=== PATIENT | male | born 1970 | race Two or more races ===

== ENCOUNTER 2016-06-17 08:41 | Observation (INO) | payer OTHER ==
[2016-06-17] VITALS (7 sets, daily range): BP systolic 132–160; BP diastolic 73–96; PULSE 94–111; RESP 12–20; TEMP 97.5–98.8; O2SAT 95–99
[~2016-06-17] VITALS: Ht 157.5 cm; Wt 72.0 kg
[2016-06-17] MEDS ORDERED: SODIUM CHLOR 0.9% 1000 ML INJ 1,000 ML IV SCH ×2 (08:57→14:48)
[2016-06-17] MEDS ORDERED: SODIUM CHLORIDE 0.9% FLUSH 10 ML FLUSH IVF PRN (09:00)
[2016-06-17] MEDS ORDERED: DIPHTH/TETANUS/ACEL PERTUSSIS (BOOSTER) 0.5 ML VIAL/PFS IM ONE (09:00)
[2016-06-17 09:26] LABS: AUTOMATED NEUTROPHIL # 8.3 TH/MM3 (1.8-7.7); BASOPHIL % 0.1 % (0.0-2.0); EOSINOPHIL % 0.4 % (0.0-4.0); HEMATOCRIT 44.9 % (39.0-51.0); HEMO FLAGS DIFF FINAL; LYMPH % 16.7 % (9.0-44.0); LYMPHOCYTE # 1.7 TH/MM3 (1.0-4.8); MEAN CELL VOLUME 87.7 FL (80.0-100.0); MEAN CORPUSCULAR HEMOGLOBIN 29.2 PG (27.0-34.0); MEAN CORPUSCULAR HGB CONC 33.3 % (32.0-36.0); MONO % 3.7 % (0.0-8.0); NEUT % 79.1 % (16.0-70.0); PLATELET COUNT 211 TH/MM3 (150-450); RED BLOOD COUNT 5.12 MIL/MM3 (4.50-5.90); RED CELL DISTRIBUTION WIDTH 13.5 % (11.6-17.2); WHITE BLOOD COUNT 10.5 TH/MM3 (4.0-11.0)
[2016-06-17 09:32] LABS: APTT (PATIENT) 21.2 SEC (24.3-30.1); PROTHROMBIN TIME - PATIENT 11.3 SEC (9.8-11.6)
[2016-06-17 09:37] LABS: POTASSIUM 3.7 MEQ/L (3.5-5.1)
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
[2016-06-17] MEDS ORDERED: IOHEXOL 350 MG/ML 10 ML VIAL (for RAD DIAG) IV ONE (10:10)
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
[2016-06-17] MEDS ORDERED: SENNOSIDES 8.6 MG TAB PO PRN (15:00)
[2016-06-17] MEDS ORDERED: MORPHINE SULFATE 4 MG/ML INJ IV PRN (15:00)
[2016-06-17] MEDS ORDERED: SODIUM CHLORIDE 0.9% FLUSH 10 ML FLUSH IV FLUSH PRN (15:00)
[2016-06-17] MEDS ORDERED: ACETAMINOPHEN 325 MG TAB PO PRN ×2 (15:00)
[2016-06-17] MEDS ORDERED: NALOXONE HCL 0.4 MG/ML AMP IV PRN (15:00)
[2016-06-17] MEDS ORDERED: ONDANSETRON HCL 4 MG/2 ML VIAL IVP PRN (15:00)
[2016-06-17] MEDS ORDERED: MORPHINE SULFATE 4 MG/ML INJ IV PUSH ONE (15:00)
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
[2016-06-17] MEDS ORDERED: HYDROmorphone HCL PF 1 MG/ML VIAL IV PUSH PRN (15:45)
[2016-06-17] MEDS ORDERED: ENOXAPARIN SODIUM 40 MG/0.4 ML SYRINGE SQ SCH (16:00)
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
[2016-06-17] MEDS: INSULIN ASPART SUPPLEMENTAL SCALE SQ SCH ×2 (17:01→21:30)
[2016-06-17 17:09] LABS: HEMOGLOBIN A1a 1.3 %; HEMOGLOBIN A1b 2.3 %; HEMOGLOBIN Ao 78.8 %; HEMOGLOBIN LA1C 3.5 %; HEMOGLOBIN P3 4.7 %
[2016-06-17] MEDS: DOCUSATE SODIUM 100 MG CAP PO SCH (18:00)
[2016-06-17] MEDS ORDERED: diphenhydrAMINE HCL 50 MG/ML VIAL IV PUSH ONE (18:00)
[2016-06-17] MEDS ORDERED: methylPREDNISolone SOD SUCC 125 MG/2 ML VIAL IV PUSH ONE (18:00)
[2016-06-17] MEDS: SODIUM CHLORIDE 0.9% FLUSH 10 ML FLUSH IV FLUSH SCH (21:00)
[2016-06-18] MEDS: DOCUSATE SODIUM 100 MG CAP PO SCH ×2 (04:00→15:22)
[2016-06-18 04:18] VITALS: BP 144/88; PULSE 88; RESP 20; TEMP 98.3; O2SAT 97
[2016-06-18] MEDS: INSULIN ASPART SUPPLEMENTAL SCALE SQ SCH ×3 (06:36→16:00)
[2016-06-18] MEDS ORDERED: diphenhydrAMINE HCL 50 MG/ML VIAL IV PUSH ONE (07:00)
[2016-06-18 08:00] VITALS: BP 129/78; PULSE 80; RESP 20; TEMP 98; O2SAT 96
[2016-06-18 08:18] LABS: AUTOMATED NEUTROPHIL # 8.9 TH/MM3 (1.8-7.7); BASOPHIL % 0.1 % (0.0-2.0); EOSINOPHIL % 0.1 % (0.0-4.0); HEMATOCRIT 44.1 % (39.0-51.0); HEMO FLAGS DIFF FINAL; LYMPH % 9.7 % (9.0-44.0); MEAN CELL VOLUME 88.2 FL (80.0-100.0); MEAN CORPUSCULAR HEMOGLOBIN 29.6 PG (27.0-34.0); MEAN CORPUSCULAR HGB CONC 33.6 % (32.0-36.0); MONO % 2.8 % (0.0-8.0); NEUT % 87.3 % (16.0-70.0); PLATELET COUNT 257 TH/MM3 (150-450); RED BLOOD COUNT 4.99 MIL/MM3 (4.50-5.90); RED CELL DISTRIBUTION WIDTH 13.7 % (11.6-17.2); WHITE BLOOD COUNT 10.2 TH/MM3 (4.0-11.0)
--- NOTE | 2016-06-18 08:47 | PD.POD ---
Subjective Podiatric Problems Pt seen bedside this morning, [place]ian speaking, no acute distress Past Med/Surg/Social History Social History Smoking Status: Never Smoker Objective Vital Signs Vital Signs Date Time Temp Pulse Resp B/P Pulse Ox O2 Delivery O2 Flow Rate FiO2 06/18/16 04:18 98.3 88 20 144/88 97 06/17/16 23:51 98.4 102 20 132/73 95 06/17/16 19:45 98.8 94 20 145/79 95 06/17/16 17:17 97.8 111 18 136/85 96 06/17/16 15:46 107 12 144/84 99 Room Air 06/17/16 14:03 108 17 152/86 98 Room Air 06/17/16 12:00 106 12 140/85 99 Room Air 06/17/16 08:48 97.5 100 16 160/96 98 Coded Allergies: No Known Allergies (Unverified , 06/17/16) Exam-Podiatry Remarks Right foot edema improved, still moderate edema Pulses and sensation intact CAn wiggle toes No fracture blisters Assessment & Plan Diagnosis: (1) Metatarsal bone fracture Status: Acute A/P Pt with no sign of compartment syndrome Pt with closed met base fractures, nonoperative at this point Plan is posterior splint with mild compressive dressing nonweight bearing with crutches Diabetes management per primary F/U with Dr Vega 2-3 weeks Problem Qualifiers (1) Metatarsal bone fracture: Qualified Code: S92.301A - Closed displaced fracture of metatarsal bone of right foot, unspecified metatarsal, initial encounter Yazan Vega DPM Jun 18, 2016 08:47
[2016-06-18 08:58] LABS: ALKALINE PHOSPHATASE 79 U/L (45-117); ALT (GPT) 58 U/L (12-78); ANION GAP 10 MEQ/L (5-15); AST (GOT) 21 U/L (15-37); BICARBONATE 25.2 MEQ/L (21.0-32.0); BLOOD UREA NITROGEN 12 MG/DL (7-18); CHLORIDE 102 MEQ/L (98-107); GLOMERULAR FILTRATION RATE 118 ML/MIN (>89); POTASSIUM 3.6 MEQ/L (3.5-5.1); SODIUM (NA) 137 MEQ/L (136-145); TOTAL BILIRUBIN ADULT 1.9 MG/DL (0.2-1.0)
[2016-06-18] MEDS ORDERED: ENOXAPARIN SODIUM 40 MG/0.4 ML SYRINGE SQ SCH (09:00)
[2016-06-18] MEDS: SODIUM CHLORIDE 0.9% FLUSH 10 ML FLUSH IV FLUSH SCH (09:22)
[2016-06-18 12:10] VITALS: BP 130/77; PULSE 83; RESP 20; TEMP 98.1; O2SAT 95
[2016-06-18] MEDS ORDERED: diphenhydrAMINE HCL 50 MG CAP PO ONE (15:00)
[2016-06-18] MEDS ORDERED: GLIP5TAB8 PO (15:53)
[2016-06-18] MEDS ORDERED: NORC5TAB PO (15:53)
[2016-06-18] MEDS ORDERED: CRUTMIS25 (15:57)
[2016-06-18] MEDS ORDERED: BLOOD GLUCOSE M1 KIT (15:57)
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
[2016-06-18 16:00] VITALS: BP 142/79; PULSE 80; RESP 20; TEMP 98.1; O2SAT 96
[2016-06-18] MEDS ORDERED: FAMOTIDINE 20 MG TAB PO ONE (16:00)
[2016-06-18] MEDS ORDERED: predniSONE 50 MG TAB PO ONE (16:00)
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
== END 2016-06-18 18:34 | disposition home or self-care (01) ==
LOC: NEPC 08:41 → NEDA 13:58 → NEPGCP 16:44
PROVIDERS: ADMIT Hospitalist; ATTEND Hospitalist
DX: S92.341A Displaced fracture of fourth metatarsal bone, right foot, initial encounter for closed fracture (principal); S92.321A Displaced fracture of second metatarsal bone, right foot, initial encounter for closed fracture; S92.331A Displaced fracture of third metatarsal bone, right foot, initial encounter for closed fracture; E11.65 Type 2 diabetes mellitus with hyperglycemia; F10.10 Alcohol abuse, uncomplicated; K76.0 Fatty (change of) liver, not elsewhere classified; R21 Rash and other nonspecific skin eruption; L29.9 Pruritus, unspecified; V89.0XXA Person injured in unspecified motor-vehicle accident, nontraffic, initial encounter; Y92.69 Other specified industrial and construction area as the place of occurrence of the external cause; Y99.0 Civilian activity done for income or pay
CPT/HCPCS: 70450; 71010; 71260; 72125; 72128; 72170; 73130; 73552; 73590; 73610; 73630; 73700; 74177; 80048; 80053; 82948; 83036; 85025; 85610; 85730; 86850; 86900; 86901; 90471; 90715; 96360; 96361; 99285; E0113; G0378; J1200; J1650; J1815; J2930; J7030; J7512; L0150; Q0163; Q9967